=== PATIENT | female | born 1965 | race Caucasian/White ===

== ENCOUNTER 2018-08-28 12:53 | Emergency (ER) | payer MEDICAID, OTHER ==
[2018-08-28] MEDS: ACETAMINOPHEN 325 MG TAB PO (13:24)
[2018-08-28] MEDS: BENAZEPRIL 20 MG TAB PO (15:40)
[2018-08-28] MEDS: HYDROCHLOROTHIAZIDE 25 MG TAB PO (15:40)
== END 2018-08-28 15:45 | disposition home or self-care (01) ==
LOC: FTE 12:53
DX: S82.202A Unspecified fracture of shaft of left tibia, initial encounter for closed fracture (principal); I10 Essential (primary) hypertension; V00.831A Fall from motorized mobility scooter, initial encounter
CPT/HCPCS: 29505; 73562; 73700; 99284-25